=== PATIENT | female | born 1995 | race Hispanic/Latino ===

== ENCOUNTER 2019-11-16 01:30 | Emergency (ER) | payer OTHER ==
[2019-11-16] MEDS ORDERED: MAG HYDROX/AL HYDROX/SIMETH ES 30 ML SUSP UDCUP ONE (03:09)
[2019-11-16] MEDS ORDERED: LIDOCAINE HCL 2% VISCOUS 15 ML UDCUP ONE (03:09)
[2019-11-16] MEDS ORDERED: DEXAMETHASONE SOD PHOSPHATE 10MG/ML 1ML VIAL ONE (03:09)
[2019-11-16] MEDS ORDERED: CLINDAMYCIN HCL 150 MG CAP ONE (03:09)
== END 2019-11-16 03:22 | disposition home or self-care (01) ==
LOC: EDH 01:30
DX: J03.90 Acute tonsillitis, unspecified (principal)
CPT/HCPCS: 99284; J1100

== ENCOUNTER → 2025-04-25 | Outpatient (CLI) | payer OTHER ==
--- NOTE | 2025-04-25 12:55 | HMCIMG ---
Exam Type: US TRANSVAGINAL NON-OB Clinical Information: SECONDARY AMENORRHEA Comparison: None Findings: The uterus is normal in size and echogenicity. The endometrial lining is normal in thickness. No intrauterine or ectopic seen. The ovaries are normal in size and echogenicity. Bilateral ovarian follicles are seen. Vascular Doppler flow exam and spectral analysis of waveforms analysis is unremarkable bilaterally. There is preserved vascularity to both ovaries on Doppler evaluation. Specifically, there is no evidence of ovarian torsion. Minimal free fluid is noted in the cul-de-sac. There are no adnexal abnormalities. No other significant abnormalities are seen. No fluid collections or masses or free fluid are identified in the pelvis. Impression: NORMAL EXAM. No evidence of uterine pathology. No evidence of adnexal abnormalities or ovarian torsion. No intrauterine or ectopic seen.
== END | disposition home or self-care (01) ==
LOC: RAH 10:45
PROVIDERS: ATTEND Family Medicine
DX: N83.02 Follicular cyst of left ovary (principal); N83.01 Follicular cyst of right ovary; N91.1 Secondary amenorrhea
CPT/HCPCS: 76830

== ENCOUNTER → 2025-07-13 | Outpatient (CLI) | payer OTHER ==
[~2025-07-13] MED LIST: GADOTERATE MEGLUMINE 10 MMOL/20 ML VIAL IV ONE
--- NOTE | 2025-07-14 15:25 | HMCIMG ---
EXAM: MR Brain and Pituitary Gland without and With IV Contrast. CLINICAL HISTORY: Hyperprolactinemia. TECHNIQUE: Multiplanar multi-sequence MRI of the brain and pituitary gland without and with IV Contrast. COMPARISON: None provided. FINDINGS: Pituitary gland: The pituitary gland is normal in size and signal intensity. The pituitary infundibulum is midline. The optic chiasm is unremarkable. The adjacent cavernous sinus is unremarkable. Brain: No abnormal parenchymal signal is present. No evidence of acute cortical infarction, hemorrhage, mass, or mass effect. No hydrocephalus. No abnormal extra-axial fluid collection is present. The marrow signal within the skull base and calvarium is intact. The paranasal sinuses and mastoid air cells are clear. IMPRESSION: Normal MRI of the brain and pituitary gland. /[place]
== END | disposition home or self-care (01) ==
LOC: RAH 08:06
PROVIDERS: ATTEND Family Medicine
DX: E22.1 Hyperprolactinemia (principal); N91.1 Secondary amenorrhea
CPT/HCPCS: 70553; A9575